=== PATIENT | female | born 1950 ===

== ENCOUNTER 2017-12-28 06:52 | Day surgery (SDC) | payer OTHER ==
[~2017-12-28 06:52] MED LIST: DILTIAZEM PO; EVISTA60 MG PO; PAXIL20 MG PO; PROTONIX40 M1 PO; XANAX0.25 MG PO; ZOCOR20 MG PO
[2017-12-28] MEDS ORDERED: MACROBID 100 M100 MG PO (13:26)
[2017-12-28] MEDS ORDERED: ULTRACET PO (13:27)
== END 2017-12-28 16:00 | disposition home or self-care (01) ==
LOC: CIR.AMB 06:52
DX: N81.3 Complete uterovaginal prolapse (principal)